=== PATIENT | female | born 1950 | race Caucasian/White ===

== ENCOUNTER 2022-06-20 11:55 | Emergency (ER) | payer MEDICARE, OTHER ==
[2022-06-20 12:42] LABS: HEMOGLOBIN 12.2 gm/dl (12.3-15.3); RED BLOOD COUNT 3.88 M/UL (4.00-5.10); WHITE BLOOD COUNT 5.8 K/UL (4.5-11.0)
[2022-06-20 13:07] LABS: BUN/CREATININE RATIO 21 (0-10)
== END 2022-06-21 20:30 | disposition short-term general hospital (02) ==
LOC: ER1 11:55
PROVIDERS: Family Medicine
DX: R44.3 Hallucinations, unspecified (principal); R45.851 Suicidal ideations; Z20.822 Contact with and (suspected) exposure to COVID-19
CPT/HCPCS: 70450; 80053; 80307; 81001; 85025; 99285; G0480; U0002